=== PATIENT | female | born 1930 | race Caucasian/White ===

== ENCOUNTER 2016-07-07 14:10 | Emergency (ER) | payer MEDICARE, BC ==
--- NOTE | ~2016-07-07 | CR63 ---
[facility] A Service of [facility] RADIOLOGY TEXT RESULTS PATIENT: SARI HOLM LOCATION: [facility] : 34 UNIT #: [id number] AGE: [address]: Willis Sullivan MD SEX: F ORDER DR: [id number] [facility] [address] [place], [place] [address] [id number] E MR#: [id number] Acc #: [id number] NAME: SARI HOLM : 1930 SEX: F STUDY DATE/TIME: 07/07/2016 13:06 UNIT: [facility] ROOM: STUDY DESCRIPTION: CR Chest 2 View Attending Physician: Willis Sullivan M.D. Ordering Physician: Messi Rodriguez M.D. Primary Care Physician: Yg Gudino M.D. MEDICAL IMAGING REPORT This report is preliminary unless electronic signature is present EXAM PA and lateral chest, 07/07/2016 HISTORY 86-year-old female with cough and congestion over the past 2 weeks. FINDINGS In comparison to the previous exam of 07/05/2016 there has been no change in the bilateral pulmonary emphysema. Mild interstitial prominence is seen which may represent some edema. No cardiac enlargement present. No pleural effusion or consolidation is evident. No pneumothorax present. IMPRESSION Stable chest with some mild interstitial edema suspected but no consolidation or cardiac enlargement appreciated. Dictated by... Gregor Agee M.D. THIS IS AN ELECTRONICALLY VERIFIED REPORT Gregor gAee M.D. at 07/07/2016 4:53 PM Tomasz TD: 07/07/2016 16:23 JOB #: [id number] MEDICAL IMAGING REPORT COPY
--- NOTE | ~2016-07-07 | EKG ---
PATIENT: SARI HOLM UNIT #: [id number] Ventricular Rate: 80 BPM Atrial Rate: 80 BPM P-R Interval: 170 ms QRS Duration: 74 ms Q-T Interval: 372 ms QTC Calculation(Bezet): 429 ms P Jolon: -14 degrees Calculated R Jolon: -3 degrees Calculated T Jolon: 8 degrees Diagnosis Line: Normal sinus rhythm Diagnosis Line: Moderate voltage criteria for LVH, may be normal Diagnosis Line: variant Diagnosis Line: Borderline ECG Diagnosis Line: When compared with ECG of 28-JUL-2015 05:25, Diagnosis Line: No significant change was found Diagnosis Line: Confirmed by PADMA CHOI MD ([id number]) on 07/07/2016 Diagnosis Line: 5:32:51 PM INTERPRETING MD: JIMBO ANDERSON
[~2016-07-07 14:10] MED LIST: ACETAMINOPHEN PO; ACTOS PO; ALBUTEROL17 GM INH; ARIXTRA7.5 MG/0.6 SQ; COLACE PO; CORDARONE200 M1 PO; COUMADIN PO; COUMADIN2.5 MG PO; COUMADIN5 MG PO; FAMOTIDINE; FOLIC ACID1 MG PO; LEVOTHYROXINE100 MCG PO; LIPITOR20 MG PO; LORTAB 5/500 TA1 TA1 PO; LOVENOX80 MG/0.8 INJ; METFORMIN; METHOTREXATE2.5 MG PO; NEXIUM PO; NOVALOG SQ; NOVOLOG100 U/ML SUBQ; PREDNISONE10 MG PO; PROCARDIA XL PO; PROCARDIA10 MG PO; SYNTHROID PO; SYNTHROID0.1 MG PO; SYNTHROID100 MCG/5 PO; TIMOPTIC2.5 ML OU; TOPROL XL PO; TOPROL XL50 MG; TOPROL XL50 MG PO; VICODIN 5-3001 EACH PO; ZOFRAN
[2016-07-07 14:43] LABS: BASOPHIL% 0.4 % (0-2.5); EOSINOPHIL% 0.1 % (0.0-7.0); HEMATOCRIT 40.4 % (35.0-45.0); HEMOGLOBIN 13.2 gm/dL (12.0-16.0); LYMPHOCYTE# 1.2 X10e3 (1.0-3.5); LYMPHOCYTE% 19.1 % (17.0-45.0); MEAN CELL VOLUME 95.7 FL (83-96); MEAN CORPUSCULAR HEMOGLOBIN 31.2 PG (28-34); MEAN CORPUSCULAR HGB CONC 32.6 g/dL (30-36); MEAN PLATELET VOLUME 9.5 FL (6.5-11.5); MONOCYTE% 15.9 % (3.0-12.0); NEUTROPHIL# 3.9 X10e3 (1.5-7.1); NEUTROPHIL% 64.5 % (40-75); PLATELET COUNT 234 X10e3 (140-420); RED BLOOD COUNT 4.22 X10e (3.90-5.30); RED CELL DISTRIBUTION WIDTH 14.9 % (11.0-15.5); WHITE BLOOD COUNT 6.1 X10e3 (4.0-10.5)
[2016-07-07 14:54] LABS: DIFF IND NO
[2016-07-07 15:21] LABS: POC - CKMB 2.1 ng/mL (0.0-7.9); POC - TROPONIN <0.05 ng/mL (<=0.05)
[2016-07-07 15:24] LABS: INR 1.6; PROTHROMBIN TIME (PATIENT) 17.4 SECONDS (9.6-11.5)
[2016-07-07 15:25] LABS: ALBUMIN SERUM 4.2 g/dL (3.5-5.0); ALKALINE PHOSPHATASE 69 U/L (32-92); ALT (SGPT) 15 U/L (10-40); AST (SGOT) 23 U/L (10-42); BILIRUBIN, DIRECT 0.1 mg/dL (0.0-0.2); BILIRUBIN,INDIRECT 0.3 mg/dL (0.0-0.9); BILIRUBIN,TOTAL 0.4 mg/dL (0.2-2.0); BLOOD UREA NITROGEN 19 mg/dL (9-23); BUN/CREATININE RATIO 21.11; CARBON DIOXIDE 23 mmol/L (22-31); CHLORIDE 97 mmol/L (100-111); CREATININE SERUM 0.9 mg/dL (0.6-1.4); GLOM FILT RATE Estimated ABOVE60 mL/min (>60); GLUCOSE FASTING 237 mg/dL (70-110); POTASSIUM 4.2 mmol/L (3.5-5.1); PROTEIN TOTAL SERUM 7.9 g/dL (6.0-8.3); SODIUM 132 mmol/L (135-145)
[2016-07-07] MEDS ORDERED: TOPROL XL50 MG PO (15:26)
[2016-07-07] MEDS ORDERED: SYNTHROID0.1 MG PO (15:26)
[2016-07-07] MEDS ORDERED: METHOTREXATE2.5 MG PO (15:27)
[2016-07-07] MEDS ORDERED: NOVOLOG100 U/M2 (15:27)
[2016-07-07] MEDS ORDERED: LIPITOR PO (15:27)
[2016-07-07] MEDS ORDERED: VICODIN 5-3001 EACH PO (15:28)
[2016-07-07] MEDS ORDERED: COUMADIN2.5 MG PO (15:29)
[2016-07-07] MEDS ORDERED: COUMADIN5 MG PO (15:29)
[2016-07-07 15:57] LABS: INFLUENZA A NEG (NEG); INFLUENZA B NEG (NEG)
[2016-07-07 17:17] LABS: POC - CKMB 1.8 ng/mL (0.0-7.9); POC - TROPONIN <0.05 ng/mL (<=0.05)
== END 2016-07-07 17:37 | disposition home or self-care (01) ==
LOC: CED 14:10
PROVIDERS: Emergency Medicine
DX: J20.9 Acute bronchitis, unspecified (principal); I25.10 Atherosclerotic heart disease of native coronary artery without angina pectoris; I10 Essential (primary) hypertension; Z88.0 Allergy status to penicillin; Z88.5 Allergy status to narcotic agent; Z88.1 Allergy status to other antibiotic agents
CPT/HCPCS: 36415; 71020; 80048; 80076; 82553; 84484; 85025; 85610; 87804; 93005; 94640; 96374; 99283; 99284; J2930